=== PATIENT | male | born 1955 | race Caucasian/White ===

== ENCOUNTER 2017-09-16 02:51 | Inpatient (IN) | payer OTHER ==
[2017-09-16] MEDS: HYDROmorphONE 0.5 MG/0.5 ML SYG IV ×2 (03:19→05:06)
[2017-09-16 03:26] LABS: ADD MAN DIFF? NO
[2017-09-16 03:29] LABS: BASOPHILS % 0.5 % (0.0-2.0); EOSINOPHILS # 0.2 10^3/ul (0.0-0.5); EOSINOPHILS % 2.3 % (0.0-7.0); HEMATOCRIT 42.6 % (42.0-52.0); LYMPHOCYTES # 3.4 10^3/ul (0.8-2.9); LYMPHOCYTES % 40.4 % (15.0-51.0); MEAN CORPUSCULAR HEMOGLOBIN 29.1 pg (29.0-33.0); MEAN CORPUSCULAR HGB CONC 35.2 g/dl (32.0-37.0); MEAN CORPUSCULAR VOLUME 82.7 fl (82.0-101.0); MEAN PLATELET VOLUME 10.4 fl (7.4-10.4); MONOCYTE # 0.8 10^3/ul (0.3-0.9); MONOCYTES % 9.9 % (0.0-11.0); NEUTROPHIL # 3.9 10^3/ul (1.6-7.5); NEUTROPHILS % 46.7 % (39.0-77.0); PLATELET COUNT 161 10^3/UL (140-415); RED BLOOD COUNT 5.15 10^6/ul (4.70-6.10); RED CELL DISTRIBUTION WIDTH 12.8 % (11.5-14.5)
[2017-09-16 03:29] LABS: WHITE BLOOD COUNT 8.4 10^3/ul (4.8-10.8)
[2017-09-16 03:58] LABS: ALANINE AMINOTRANSFERASE 51 IU/L (13-69); ALBUMIN 4.3 g/dl (3.3-4.9); ALBUMIN/GLOBULIN RATIO 1.34; ALKALINE PHOSPHATASE 65 IU/L (42-121); ANION GAP 18 (8-16); ASPARTATE AMINO TRANSFERASE 37 IU/L (15-46); BILIRUBIN,INDIRECT 0.3 mg/dl (0-1.1); BILIRUBIN,TOTAL 0.3 mg/dl (0.2-1.3); BLOOD UREA NITROGEN 20 mg/dl (7-20); CALCIUM 9.3 mg/dl (8.4-10.2); CARBON DIOXIDE 28 mmol/L (21-31); CHLORIDE 106 mmol/L (97-110); CREATININE 0.99 mg/dl (0.61-1.24); GLUCOSE 134 mg/dl (70-220); LIPASE 128 U/L (23-300); POTASSIUM 4.1 mmol/L (3.5-5.1); SODIUM 148 mmol/L (135-144); TOTAL PROTEIN 7.5 g/dl (6.1-8.1)
[2017-09-16 04:04] LABS: URINE BLOOD (Dip) POC Negative (NEGATIVE); URINE GLUCOSE (Dip) POC Negative (NEGATIVE); URINE KETONES (Dip) POC Negative (NEGATIVE); URINE LEUKOCYTE EST (Dip) POC Negative (NEGATIVE); URINE NITRITE (Dip) POC Negative (NEGATIVE); URINE TOTAL PROTEIN POC Negative (NEGATIVE)
[2017-09-16] MEDS: KETOROLAC 15 MG INJ IV (05:05)
[2017-09-16] MEDS: SOD CHLORIDE 0.9% 1,000 ML IV (05:23)
[2017-09-16] MEDS ORDERED: ALBUTEROL/IPRATROPIUM (NEB) 3 ML AMP HHN (05:30)
[2017-09-16] MEDS ORDERED: NACL 0.9% 3 ML SYG IV (05:30)
[2017-09-16] MEDS: CEFTRIAXONE 1 GM/50 ML (PMX) 50 ML IVPB (08:14)
[2017-09-16] MEDS: SOD CHLORIDE 0.45% 1,000 ML IV ×3 (08:15→23:41)
[2017-09-16] MEDS: TAMSULOSIN (SR) 0.4 MG CAP PO (08:16)
[2017-09-16] MEDS: ACETAMINOPHEN 325 MG TAB PO (10:55)
[2017-09-16] MEDS: ATORVASTATIN 20 MG TAB PO (21:38)
[2017-09-16] MEDS: ONDANSETRON 4 MG INJ IV (22:13)
[2017-09-16] MEDS: morphine 2 MG INJ IV (22:14)
[2017-09-17 05:06] LABS: ADD MAN DIFF? NO
[2017-09-17 05:15] LABS: BASOPHILS % 0.4 % (0.0-2.0); EOSINOPHILS # 0.2 10^3/ul (0.0-0.5); EOSINOPHILS % 2.6 % (0.0-7.0); HEMATOCRIT 38.7 % (42.0-52.0); HEMOGLOBIN 13.4 g/dl (14.0-18.0); LYMPHOCYTES # 2.2 10^3/ul (0.8-2.9); LYMPHOCYTES % 31.7 % (15.0-51.0); MEAN CORPUSCULAR HEMOGLOBIN 28.9 pg (29.0-33.0); MEAN CORPUSCULAR HGB CONC 34.6 g/dl (32.0-37.0); MEAN CORPUSCULAR VOLUME 83.4 fl (82.0-101.0); MEAN PLATELET VOLUME 10.4 fl (7.4-10.4); MONOCYTE # 0.6 10^3/ul (0.3-0.9); MONOCYTES % 8.2 % (0.0-11.0); NEUTROPHIL # 3.9 10^3/ul (1.6-7.5); NEUTROPHILS % 56.8 % (39.0-77.0); PLATELET COUNT 125 10^3/UL (140-415); RED BLOOD COUNT 4.64 10^6/ul (4.70-6.10)
[2017-09-17 05:15] LABS: WHITE BLOOD COUNT 6.8 10^3/ul (4.8-10.8)
[2017-09-17 05:35] LABS: ALANINE AMINOTRANSFERASE 45 IU/L (13-69); ALBUMIN 3.4 g/dl (3.3-4.9); ALBUMIN/GLOBULIN RATIO 1.21; ALKALINE PHOSPHATASE 60 IU/L (42-121); ANION GAP 15 (8-16); ASPARTATE AMINO TRANSFERASE 26 IU/L (15-46); BILIRUBIN,INDIRECT 0.7 mg/dl (0-1.1); BILIRUBIN,TOTAL 0.7 mg/dl (0.2-1.3); BLOOD UREA NITROGEN 15 mg/dl (7-20); CALCIUM 8.3 mg/dl (8.4-10.2); CARBON DIOXIDE 26 mmol/L (21-31); CHLORIDE 107 mmol/L (97-110); CREATININE 0.89 mg/dl (0.61-1.24); GLUCOSE 105 mg/dl (70-220); MAGNESIUM 1.9 mg/dl (1.7-2.5); PHOSPHORUS 3.8 mg/dl (2.5-4.9); POTASSIUM 4.1 mmol/L (3.5-5.1); SODIUM 144 mmol/L (135-144); TOTAL PROTEIN 6.2 g/dl (6.1-8.1)
[2017-09-17] MEDS: HYDROmorphONE 0.5 MG/0.5 ML SYG IV ×5 (05:51→23:48)
[2017-09-17] MEDS: ONDANSETRON 4 MG INJ IV (05:51)
[2017-09-17] MEDS: CEFTRIAXONE 1 GM/50 ML (PMX) 50 ML IVPB (08:59)
[2017-09-17] MEDS: SOD CHLORIDE 0.45% 1,000 ML IV ×3 (09:00→20:28)
[2017-09-17] MEDS: TAMSULOSIN (SR) 0.4 MG CAP PO (09:41)
[2017-09-17] MEDS: LEVOFLOXACIN 750MG/D5W (PMX) 150 ML IVPB (15:39)
[2017-09-17] MEDS: ACETAMINOPHEN 325 MG TAB PO (15:59)
[2017-09-17] MEDS: ATORVASTATIN 20 MG TAB PO (21:00)
== END 2017-09-17 20:20 | disposition other institution (70) | DRG 694 ==
LOC: E/R 02:51 → MS3 05:27
DX: N13.2 Hydronephrosis with renal and ureteral calculous obstruction (principal); E87.0 Hyperosmolality and hypernatremia
CPT/HCPCS: 36415; 74018; 74176; 80053; 81003; 83690; 83735; 84100; 85025; 87040; 96374; 96375; 96376; 99285-25